=== PATIENT | male | born 1960 | race Caucasian/White ===

== ENCOUNTER 2024-05-10 20:54 | Inpatient (IN) | payer MEDICAID ==
[~2024-05-10] VITALS: Ht 175.3 cm; Wt 86.0 kg
[2024-05-10] MEDS ORDERED: FLO0.4C PO (21:22)
[2024-05-10 21:26] LABS: BASOPHILS # (AUTO) 0.1 X10'3 (0-0.2); EOSINOPHILS # (AUTO) 0.2 X10'3 (0-0.9); EOSINOPHILS % (AUTO) 1.7 % (0-6); LYMPHOCYTES # (AUTO) 2.1 X10'3 (1.1-4.8); MONOCYTES # (AUTO) 0.6 X10'3 (0-0.9); MONOCYTES % (AUTO) 6.6 % (2-12); WHITE BLOOD COUNT 8.9 X10'3 (4.5-11.0)
[2024-05-10 21:27] LABS: BASOPHILS % (AUTO) 1.2 % (0-1); MEAN PLATELET VOLUME 8.6 FL (7.4-10.4); NEUTROPHILS # (AUTO) 5.9 X10'3 (1.8-7.7); NEUTROPHILS % (AUTO) 66.5 % (42-75); PLATELET COUNT 407 X10'3 (140-440)
[2024-05-10 21:36] LABS: D-DIMER 0.29 MG/L FEU (0-0.50)
[2024-05-10 21:40] LABS: ALANINE AMINOTRANSFERASE 19 U/L (12-78); ALBUMIN 3.5 G/DL (3.4-5.0); ALKALINE PHOSPHATASE 86 IU/L (46-116); ANION GAP 5 (8-16); ASPARTATE AMINO TRANSFERASE 11 U/L (10-37); BILIRUBIN,TOTAL 1.8 MG/DL (0.1-1.0); BLOOD UREA NITROGEN 13 MG/DL (7-18); BUN/CREATININE RATIO 12.7 (10.0-20.0); CALCIUM 8.1 MG/DL (8.5-10.1); CHLORIDE 107 MMOL/L (99-107); CREATININE 1.02 MG/DL (0.60-1.10); GLUCOSE 86 MG/DL (70-104); POTASSIUM 4.3 MMOL/L (3.5-5.1); SODIUM 141 MMOL/L (135-145); TOTAL CARBON DIOXIDE 28.6 MMOL/L (24-32); TOTAL PROTEIN 6.9 G/DL (6.4-8.2); eCRCL 72 ML/MIN; eGFR 73 ML/MIN
[2024-05-10 21:46] LABS: PRO BRAIN NATRIURETIC PEPTIDE 182 PG/ML (0-125)
[2024-05-10 22:03] LABS: HEMOGLOBIN 8.4 g/dl (14.0-17.9); RED BLOOD COUNT 4.63 X10'6 (4.70-6.10)
[2024-05-10 22:04] LABS: HEMATOCRIT 26.8 % (42.0-52.0); MEAN CORPUSCULAR HEMOGLOBIN 18.2 PG (27.0-31.0); MEAN CORPUSCULAR HGB CONC 31.4 g/dL (33.0-36.5); MEAN CORPUSCULAR VOLUME 57.9 FL (78-98); RED CELL DISTRIBUTION WIDTH 20.4 % (11.5-14.5)
[2024-05-10 22:06] LABS: ANISOCYTOSIS 3+; ELLIPTOCYTES 2+; MICROCYTOSIS 2+; PLATELET ESTIMATE NORMAL; POIKILOCYTOSIS 1+; TEAR DROP CELLS FEW
[2024-05-10] MEDS ORDERED: ondansetron/PF 4mg/2ml inj IV PRN (23:20)
[2024-05-10] MEDS ORDERED: magnesium sulf-water 4G/100mL 100 ML IV PRN (23:20)
[2024-05-10] MEDS ORDERED: mag hydrox/Alum hydrox/simeth 30ml oral suspension PO PRN (23:20)
[2024-05-10] MEDS ORDERED: acetaminophen 325mg tablet PO PRN (23:20)
[2024-05-10] MEDS ORDERED: magnesium sulf-water 2g/50mL 50 ML IV PRN (23:20)
[2024-05-10] MEDS ORDERED: magnesium hydroxide 30ml (MOM) UD suspension PO PRN (23:20)
[2024-05-10] MEDS ORDERED: potassium Cl 20 mEq SR tablet PO PRN ×2 (23:20)
[2024-05-10] MEDS ORDERED: potassium Cl 40MEQ/1/2NS 520ml 520 ML IV PRN (23:20)
[2024-05-10] MEDS ORDERED: magnesium Cl slow-release 64mg tablet PO PRN (23:20)
[2024-05-10 23:44] LABS: INR 1.1 INR; PROTHROMBIN TIME 11.4 SECONDS (9.0-12.0)
[2024-05-10 23:55] LABS: FERRITIN 1 NG/ML (26-388)
[2024-05-11 00:20] LABS: % IRON SATURATION 8 % (11-46); IRON 34 UG/DL (53-167); TOTAL IRON BINDING CAPACITY 420 UG/DL (259-388)
[2024-05-11 02:53] LABS: BASOPHILS # (AUTO) 0.1 X10'3 (0-0.2); BASOPHILS % (AUTO) 1.8 % (0-1); EOSINOPHILS # (AUTO) 0.3 X10'3 (0-0.9); EOSINOPHILS % (AUTO) 4.4 % (0-6); LYMPHOCYTES # (AUTO) 1.9 X10'3 (1.1-4.8); LYMPHOCYTES % (AUTO) 28.7 % (21-51); MEAN PLATELET VOLUME 8.1 FL (7.4-10.4); MONOCYTES # (AUTO) 0.6 X10'3 (0-0.9); MONOCYTES % (AUTO) 8.6 % (2-12); NEUTROPHILS # (AUTO) 3.7 X10'3 (1.8-7.7); NEUTROPHILS % (AUTO) 56.5 % (42-75); PLATELET COUNT 372 X10'3 (140-440); WHITE BLOOD COUNT 6.5 X10'3 (4.5-11.0)
[2024-05-11 03:14] LABS: ALBUMIN 3.3 G/DL (3.4-5.0); ANION GAP 6 (8-16); BLOOD UREA NITROGEN 12 MG/DL (7-18); BUN/CREATININE RATIO 11.5 (10.0-20.0); CALCIUM 7.9 MG/DL (8.5-10.1); CHLORIDE 107 MMOL/L (99-107); CREATININE 1.04 MG/DL (0.60-1.10); GLUCOSE 88 MG/DL (70-104); MAGNESIUM 1.9 MG/DL (1.5-2.4); POTASSIUM 3.9 MMOL/L (3.5-5.1); SODIUM 141 MMOL/L (135-145); TOTAL CARBON DIOXIDE 28.3 MMOL/L (24-32); eCRCL 71 ML/MIN; eGFR 72 ML/MIN
[2024-05-11 03:35] LABS: HEMATOCRIT 24.6 % (42.0-52.0); HEMOGLOBIN 7.8 g/dl (14.0-17.9); MEAN CORPUSCULAR VOLUME 57.3 FL (78-98)
[2024-05-11 03:36] LABS: MEAN CORPUSCULAR HEMOGLOBIN 18.2 PG (27.0-31.0); MEAN CORPUSCULAR HGB CONC 31.7 g/dL (33.0-36.5); RED CELL DISTRIBUTION WIDTH 20.4 % (11.5-14.5)
[2024-05-11 08:00] VITALS: BP_SYST 117; BP_SYST 119; BP_SYST 124; BP_DIAS 60; BP_DIAS 65; BP_DIAS 67; PULSE 69; PULSE 77; PULSE 79
[2024-05-11] MEDS: docusate sod 100mg capsule PO SCH (08:00)
[2024-05-11] MEDS: K and/or MAG REPLACEMENT MC SCH (08:00)
[2024-05-11] MEDS: pantoprazole 40 MG vial IV SCH (08:00)
[2024-05-11] MEDS: PERFLUTREN PROTEIN-A MICROSPHR (Optison) 0.22 MG/ML 3ML VIAL IV ONE (08:00)
[2024-05-11 09:52] LABS: HEMOGLOBIN 7.8 g/dl (14.0-17.9); MEAN PLATELET VOLUME 8.3 FL (7.4-10.4); PLATELET COUNT 356 X10'3 (140-440); RED BLOOD COUNT 4.56 X10'6 (4.70-6.10); RED CELL DISTRIBUTION WIDTH 22.4 % (11.5-14.5); WHITE BLOOD COUNT 5.7 X10'3 (4.5-11.0)
[2024-05-11 10:00] VITALS: BP 122/64; PULSE 73; RESP 16; TEMP 98.6; O2SAT 93
[2024-05-11 10:09] LABS: HEMATOCRIT 25.3 % (42.0-52.0)
[2024-05-11 10:10] LABS: MEAN CORPUSCULAR HEMOGLOBIN 17.8 PG (27.0-31.0); MEAN CORPUSCULAR HGB CONC 30.8 g/dL (33.0-36.5); MEAN CORPUSCULAR VOLUME 57.8 FL (78-98)
[2024-05-11] MEDS ORDERED: iohexol 350MG/ML 100ml bottle IV ONE (11:28)
[2024-05-11 15:27] LABS: BASOPHILS # (AUTO) 0.1 X10'3 (0-0.2); EOSINOPHILS # (AUTO) 0.4 X10'3 (0-0.9); LYMPHOCYTES # (AUTO) 1.5 X10'3 (1.1-4.8); MONOCYTES # (AUTO) 0.6 X10'3 (0-0.9)
[2024-05-11 15:29] LABS: BASOPHILS % (AUTO) 1.9 % (0-1); EOSINOPHILS % (AUTO) 7.2 % (0-6); LYMPHOCYTES % (AUTO) 26.8 % (21-51); MEAN PLATELET VOLUME 8.4 FL (7.4-10.4); MONOCYTES % (AUTO) 10.3 % (2-12); NEUTROPHILS # (AUTO) 3.1 X10'3 (1.8-7.7); NEUTROPHILS % (AUTO) 53.8 % (42-75); PLATELET COUNT 368 X10'3 (140-440); WHITE BLOOD COUNT 5.7 X10'3 (4.5-11.0)
[2024-05-11 15:51] LABS: HEMATOCRIT 25.4 % (42.0-52.0); HEMOGLOBIN 8.1 g/dl (14.0-17.9); MEAN CORPUSCULAR HEMOGLOBIN 18.2 PG (27.0-31.0); MEAN CORPUSCULAR HGB CONC 31.7 g/dL (33.0-36.5); MEAN CORPUSCULAR VOLUME 57.4 FL (78-98); RED BLOOD COUNT 4.43 X10'6 (4.70-6.10); RED CELL DISTRIBUTION WIDTH 20.6 % (11.5-14.5)
[2024-05-11 16:23] LABS: ANISOCYTOSIS 3+; MICROCYTOSIS 3+; PLATELET ESTIMATE NORMAL
[2024-05-11 16:24] LABS: POLYCHROMASIA FEW
[2024-05-11 16:26] LABS: ELLIPTOCYTES 1+
[2024-05-11 16:27] LABS: HYPOCHROMASIA 2+; TEAR DROP CELLS FEW
[2024-05-11 18:00] VITALS: BP 131/63; PULSE 68; RESP 16; TEMP 97.8; O2SAT 95
[2024-05-11] MEDS: pantoprazole 40MG/NS 100ML BAG 100 ML IV SCH (20:00)
[2024-05-11] MEDS: iron sucrose complex injection 300 MG in normal saline 250ml IV soln 250 ML IV SCH (20:00)
[2024-05-11 20:46] LABS: BASOPHILS # (AUTO) 0.2 X10'3 (0-0.2); BASOPHILS % (AUTO) 2.3 % (0-1); EOSINOPHILS # (AUTO) 0.6 X10'3 (0-0.9); EOSINOPHILS % (AUTO) 8.3 % (0-6); LYMPHOCYTES # (AUTO) 1.6 X10'3 (1.1-4.8); MONOCYTES # (AUTO) 0.7 X10'3 (0-0.9); MONOCYTES % (AUTO) 9.9 % (2-12); NEUTROPHILS # (AUTO) 3.8 X10'3 (1.8-7.7); NEUTROPHILS % (AUTO) 56.5 % (42-75); PLATELET COUNT 374 X10'3 (140-440); WHITE BLOOD COUNT 6.7 X10'3 (4.5-11.0)
[2024-05-11 21:05] LABS: HEMOGLOBIN 8.2 g/dl (14.0-17.9); RED BLOOD COUNT 4.53 X10'6 (4.70-6.10)
[2024-05-11 21:06] LABS: HEMATOCRIT 26.1 % (42.0-52.0); MEAN CORPUSCULAR HEMOGLOBIN 18.2 PG (27.0-31.0); MEAN CORPUSCULAR HGB CONC 31.5 g/dL (33.0-36.5); MEAN CORPUSCULAR VOLUME 57.6 FL (78-98); RED CELL DISTRIBUTION WIDTH 20.5 % (11.5-14.5)
[2024-05-11 22:00] VITALS: BP 117/62; PULSE 65; RESP 16; TEMP 98.7; O2SAT 95
[2024-05-12] VITALS (15 sets, daily range): BP systolic 96–158; BP diastolic 50–150; PULSE 60–72; RESP 10–16; TEMP 83–98.4; O2SAT 94–98
[2024-05-12 07:22] LABS: ALBUMIN 3.2 G/DL (3.4-5.0); ANION GAP 6 (8-16); BLOOD UREA NITROGEN 15 MG/DL (7-18); CALCIUM 8.1 MG/DL (8.5-10.1); CHLORIDE 105 MMOL/L (99-107); CREATININE 1.15 MG/DL (0.60-1.10); GLUCOSE 83 MG/DL (70-104); MAGNESIUM 1.9 MG/DL (1.5-2.4); POTASSIUM 3.8 MMOL/L (3.5-5.1); SODIUM 142 MMOL/L (135-145); eCRCL 64 ML/MIN; eGFR 64 ML/MIN
[2024-05-12 07:26] LABS: BASOPHILS # (AUTO) 0.2 X10'3 (0-0.2); EOSINOPHILS # (AUTO) 0.5 X10'3 (0-0.9); LYMPHOCYTES # (AUTO) 1.5 X10'3 (1.1-4.8)
[2024-05-12 07:27] LABS: HEMOGLOBIN 8.1 g/dl (14.0-17.9); LYMPHOCYTES % (AUTO) 23.9 % (21-51); MEAN PLATELET VOLUME 8.6 FL (7.4-10.4); MONOCYTES # (AUTO) 0.7 X10'3 (0-0.9); MONOCYTES % (AUTO) 10.7 % (2-12); NEUTROPHILS # (AUTO) 3.5 X10'3 (1.8-7.7); NEUTROPHILS % (AUTO) 54.8 % (42-75); PLATELET COUNT 380 X10'3 (140-440); RED BLOOD COUNT 4.71 X10'6 (4.70-6.10); WHITE BLOOD COUNT 6.5 X10'3 (4.5-11.0)
[2024-05-12 08:01] LABS: HEMATOCRIT 26.2 % (42.0-52.0)
[2024-05-12 08:02] LABS: MEAN CORPUSCULAR VOLUME 57.9 FL (78-98)
[2024-05-12 08:03] LABS: BASOPHILS % (AUTO) 1.7 % (0-1)
[2024-05-12] MEDS ORDERED: LIDOcaine 2% Viscous 15ml cup ONE (14:25)
[2024-05-12] MEDS ORDERED: MIDAZolam 1 MG/ML 5ML VIAL ONE (14:27)
[2024-05-12] MEDS ORDERED: fentaNYL/PF 50MCG/1 ML 2ML syringe ONE (14:27)
[2024-05-12] MEDS: PEG 3350/Na sulf,bicarb,Cl/KCl oral sol 4 liter bottle PO ONE (17:32)
[2024-05-12 21:48] LABS: BASOPHILS # (AUTO) 0.1 X10'3 (0-0.2); BASOPHILS % (AUTO) 2.3 % (0-1); EOSINOPHILS # (AUTO) 0.5 X10'3 (0-0.9); EOSINOPHILS % (AUTO) 9.2 % (0-6); HEMATOCRIT 26.6 % (42.0-52.0); HEMOGLOBIN 7.9 g/dl (14.0-17.9); LYMPHOCYTES # (AUTO) 1.3 X10'3 (1.1-4.8); LYMPHOCYTES % (AUTO) 23.8 % (21-51); MEAN CORPUSCULAR HEMOGLOBIN 17.5 PG (27.0-31.0); MEAN CORPUSCULAR HGB CONC 29.6 g/dL (33.0-36.5); MEAN PLATELET VOLUME 8.2 FL (7.4-10.4); MONOCYTES # (AUTO) 0.7 X10'3 (0-0.9); MONOCYTES % (AUTO) 13.2 % (2-12); NEUTROPHILS # (AUTO) 2.7 X10'3 (1.8-7.7); NEUTROPHILS % (AUTO) 51.5 % (42-75); PLATELET COUNT 323 X10'3 (140-440); RED BLOOD COUNT 4.51 X10'6 (4.70-6.10); RED CELL DISTRIBUTION WIDTH 21.6 % (11.5-14.5); WHITE BLOOD COUNT 5.3 X10'3 (4.5-11.0)
[2024-05-13] VITALS (14 sets, daily range): BP systolic 137–186; BP diastolic 75–93; PULSE 62–74; RESP 12–18; TEMP 97.4–98.3; O2SAT 93–98
[2024-05-13 07:14] LABS: HEMATOCRIT 29.3 % (42.0-52.0); HEMOGLOBIN 8.3 g/dl (14.0-17.9); MEAN CORPUSCULAR HEMOGLOBIN 17.1 PG (27.0-31.0); MEAN CORPUSCULAR HGB CONC 28.5 g/dL (33.0-36.5); MEAN PLATELET VOLUME 8.3 FL (7.4-10.4); PLATELET COUNT 361 X10'3 (140-440); RED BLOOD COUNT 4.88 X10'6 (4.70-6.10); WHITE BLOOD COUNT 5.3 X10'3 (4.5-11.0)
[2024-05-13 07:29] LABS: ALBUMIN 3.3 G/DL (3.4-5.0); ANION GAP 9 (8-16); BLOOD UREA NITROGEN 12 MG/DL (7-18); BUN/CREATININE RATIO 11.4 (10.0-20.0); CHLORIDE 105 MMOL/L (99-107); CREATININE 1.05 MG/DL (0.60-1.10); GLUCOSE 79 MG/DL (70-104); MAGNESIUM 1.9 MG/DL (1.5-2.4); POTASSIUM 3.7 MMOL/L (3.5-5.1); SODIUM 140 MMOL/L (135-145); TOTAL CARBON DIOXIDE 26.1 MMOL/L (24-32); eCRCL 70 ML/MIN; eGFR 71 ML/MIN
[2024-05-13 08:21] LABS: ANISOCYTOSIS 3+; HYPOCHROMASIA 2+; MICROCYTOSIS 2+; NUCLEATED RED BLOOD CELLS 1 /100WBC (0-0); PLATELET ESTIMATE NORMAL; TOTAL CELLS COUNTED 100
[2024-05-13 08:23] LABS: ELLIPTOCYTES 1+; POLYCHROMASIA 1+; TEAR DROP CELLS FEW
[2024-05-13] MEDS ORDERED: simethicone 40mg/0.6ml oral drops 30ml ONE (09:00)
[2024-05-13] MEDS ORDERED: fentaNYL/PF 50MCG/1 ML 2ML syringe ONE (16:17)
[2024-05-13] MEDS ORDERED: MIDAZolam 1 MG/ML 5ML VIAL ONE (16:17)
[2024-05-14 06:00] VITALS: BP 135/78; PULSE 86; RESP 17; TEMP 98.7; O2SAT 97
[2024-05-14 06:22] LABS: ALBUMIN 3.1 G/DL (3.4-5.0); ANION GAP 8 (8-16); BLOOD UREA NITROGEN 9 MG/DL (7-18); BUN/CREATININE RATIO 8.7 (10.0-20.0); CALCIUM 8.1 MG/DL (8.5-10.1); CHLORIDE 106 MMOL/L (99-107); CREATININE 1.04 MG/DL (0.60-1.10); GLUCOSE 104 MG/DL (70-104); MAGNESIUM 1.9 MG/DL (1.5-2.4); POTASSIUM 3.5 MMOL/L (3.5-5.1); SODIUM 140 MMOL/L (135-145); TOTAL CARBON DIOXIDE 26.2 MMOL/L (24-32); eCRCL 71 ML/MIN; eGFR 72 ML/MIN
[2024-05-14 06:39] LABS: BASOPHILS # (AUTO) 0.2 X10'3 (0-0.2); BASOPHILS % (AUTO) 2.8 % (0-1); EOSINOPHILS # (AUTO) 0.8 X10'3 (0-0.9); HEMATOCRIT 28.3 % (42.0-52.0); HEMOGLOBIN 8.2 g/dl (14.0-17.9); LYMPHOCYTES # (AUTO) 1.6 X10'3 (1.1-4.8); LYMPHOCYTES % (AUTO) 22.6 % (21-51); MEAN CORPUSCULAR HEMOGLOBIN 17.5 PG (27.0-31.0); MEAN CORPUSCULAR HGB CONC 28.9 g/dL (33.0-36.5); MEAN CORPUSCULAR VOLUME 60.6 FL (78-98); MEAN PLATELET VOLUME 8.3 FL (7.4-10.4); MONOCYTES # (AUTO) 0.7 X10'3 (0-0.9); MONOCYTES % (AUTO) 10.6 % (2-12); NEUTROPHILS # (AUTO) 3.7 X10'3 (1.8-7.7); PLATELET COUNT 361 X10'3 (140-440); RED BLOOD COUNT 4.67 X10'6 (4.70-6.10); RED CELL DISTRIBUTION WIDTH 29.8 % (11.5-14.5); WHITE BLOOD COUNT 6.9 X10'3 (4.5-11.0)
[2024-05-14 07:26] LABS: ANISOCYTOSIS 3+; HYPOCHROMASIA 2+; MICROCYTOSIS 2+; PLATELET ESTIMATE NORMAL; POLYCHROMASIA FEW
[2024-05-14 07:27] LABS: ELLIPTOCYTES 1+; TEAR DROP CELLS FEW
[2024-05-14 09:00] VITALS: RESP 18; O2SAT 97
[2024-05-14 10:00] VITALS: BP 139/82; PULSE 67; RESP 16; TEMP 97.8; O2SAT 95
[2024-05-14] MEDS ORDERED: PANT40TA54 PO (12:02)
[2024-05-14] MEDS ORDERED: FERR-116 PO (12:02)
[2024-05-14] MEDS ORDERED: ASCO125T PO (12:05)
[2024-05-14] MEDS ORDERED: pantoprazole 40 MG vial IV SCH (20:00)
== END 2024-05-14 14:00 | disposition home or self-care (01) | DRG 244 ==
LOC: ER 20:55 → ED HOLD 23:25 → ORTHO 4S 05-11 08:07 → SUR 3N 05-13 19:03
PROVIDERS: ADMIT Surgery; ATTEND Family Medicine
PROC: B32T1ZZ Computerized Tomography (CT Scan) of Left Pulmonary Artery using Low Osmolar Contrast (ICD-10-PCS; principal; 2024-05-11)
PROC: B3201ZZ Computerized Tomography (CT Scan) of Thoracic Aorta using Low Osmolar Contrast (ICD-10-PCS; 2024-05-11)
PROC: B32S1ZZ Computerized Tomography (CT Scan) of Right Pulmonary Artery using Low Osmolar Contrast (ICD-10-PCS; 2024-05-11)
PROC: 0DB58ZX Excision of Esophagus, Via Natural or Artificial Opening Endoscopic, Diagnostic (ICD-10-PCS; 2024-05-12)
PROC: 0DB68ZX Excision of Stomach, Via Natural or Artificial Opening Endoscopic, Diagnostic (ICD-10-PCS; 2024-05-12)
PROC: 0DJD8ZZ Inspection of Lower Intestinal Tract, Via Natural or Artificial Opening Endoscopic (ICD-10-PCS; 2024-05-13)
DX: K57.31 Diverticulosis of large intestine without perforation or abscess with bleeding (principal); K21.01 Gastro-esophageal reflux disease with esophagitis, with bleeding; D50.8 Other iron deficiency anemias; N40.0 Benign prostatic hyperplasia without lower urinary tract symptoms; I95.1 Orthostatic hypotension; K44.9 Diaphragmatic hernia without obstruction or gangrene; K31.7 Polyp of stomach and duodenum; Z85.820 Personal history of malignant melanoma of skin
CPT/HCPCS: 36415; 43239; 45378; 70450; 71045; 71275; 80048; 80053; 82728; 83540; 83550; 83735; 83880; 84484; 85007; 85008; 85025; 85027; 85379; 85610; 86885; 86900; 86901; 87081; 93005; 93306; 97110; 97161; 99152; 99285; A4620; G0378; J1756; J2250; J2470; J3010; J7030; J7050; Q9967